=== PATIENT | female | born 1990 | race Caucasian/White ===

== ENCOUNTER 2021-01-27 13:35 | Outpatient (REF) | payer BC, SELFPAY ==
--- OUTSIDE RECORDS SUMMARY | 2021-01-27 13:42 | XMS_ITS ---
:1990 Author Care Team Providers Name Role Phone DREW JASON Primary Care Provider [phone] Allergies Code Code System Name Reaction Severity Status Onset NKDA ? Medications Name Status Start Date Stop Date ? ? azithromycin 200 mg/5 mL oral Completed ? suspension azithromycin 250 mg tablet Completed ? 04/11 divalproex ER 500 mg tablet,extended Active ? Not available release 24 hr escitalopram 10 mg tablet Active ? Not av ailable minocycline 100 mg capsule Active ? Not a vailable Nexplanon 68 mg subdermal implant Active ? Not available Inject 1 mg as needed by subcutaneous route as directed. nitrofurantoin monohydrate/macrocrystals 100 mg capsule Active ? Not available TAKE ONE CAPSULE BY MOUTH TWICE A DAY Problems Name Status Onset Date Source ? Dyspareunia Active 04/11/2017 ? Irregular Periods Active 04/11/2017 ? Dysfunctional Uterine Bleeding Active 04/11/2017 ? Low Back Pain Active 04/11/2017 ? Dysuria Active 04/11/2017 ? Lower Back Injury Unknown 04/11/2017 ? Procedures Date Name Performed by ? ? ENT- Adenoidectomy/Tonsillectomy Informa tion not available ? [facility]-Ovarian Surgery Information not avai lable Notes: Ovarian Cysts Results Lab Results Date Name Specimen Result Interpretation Description Value Range Status Address ? 04/11/2017 Culture, Urine ? Specific 1.022 1.003-1.030 Fin al [facility] ([facility] [address], [place] ? ? Urine ? pH Urine 7.0 5.0-8.0 Final [facility] ([facility] [address], [place] ? ? Urine Rajani Protein, negative negative Final [facility] ([facility] [address], [place] ? ? Urine Rajani Glucose, negative negative Final [facility] ([facility] [address], [place] ? ? Urine ABNOR Ketone, trace negative Final [facility] Urine [facility] ([facility] [address], [place] ? ? Urine ? Urobilinoge 0.2 0.2-1.0 Final [facility] Urine mg/dL mg/dL [facility] ([facility] [address], [place] ? ? Urine Rajani Bilirubin, negative negative Final G [facility] ([facility] [address], [place] ? ? Urine Rajani Blood, negative negative Final [facility] ([facility] [address], [place] ? ? Urine Rajani Nitrites negative negative Final [facility] ([facility] [address], [place] ? ? Urine Rajani Crystals none none Final [facility] ([facility] [address], [place] ? ? Urine ABNOR WBC, Urine 41-60 0-4 per hpf Final [facility] per hpf [facility] ([facility] [address], [place] ? ? Urine Rajani RBC, Urine none none seen Final Ge [facility] seen per per hpf [facility] ([facility] [address], [place] ? ? Urine Rajani Cast, RBC, none 0-1 per lpf Final [facility] Urine seen per Health [facility] ([facility] [address], [place] ? ? Urine Rajani Cast, 0-4 per 0-4 per lpf Final [facility]p [facility] Hyaline, lpf [facility] Urine ([facility] [address], [place] ? ? Urine ABNOR Epithelial moderate none-few Final G [facility] Cells, [facility] ([facility] [address], [place] ? ? Urine Rajani Cast, none 0-1 per lpf Final Genpa [facility] Granular, Ur seen per He alth lpf ([facility] [address], [place] ? ? Urine ABNOR Bacteria, moderate none-few Final Ge n[facility] Urine [facility] ([facility] [address], [place] ? ? Urine Rajani Crystal none per none per hpf Final [facility] Amt. Urine hpf [facility] ([facility] [address], [place] ? ? Urine ABNOR Leukocyte large negative Final [facility] Esterase [facility] ([facility] [address], [place] ? ? Urine Rajani Color yellow yellow, Final [facility] straw, [facility] [address], [place] ? ? Urine ABNOR Character cloudy clear Final [facility] ([facility] [address], [place] ? ? Urine Rajani Culture, see no growth Final Gen[facility] Urine below [facility] ([facility]): [address], [place] 04/11/2017 Urinalysi Urine ? Specific 1.022 1.003-1.030 Fi nal [facility], [facility] ([facility]): [address], [place] ? ? Urine ? pH Urine 7.0 5.0-8.0 Final [facility] ([facility] [address], [place] ? ? Urine Rajani Protein, negative negative Final [facility] Urine [facility] ([facility] [address], [place] ? ? Urine Rajani Glucose, negative negative Final [facility] Urine [facility] ([facility] [address], [place] ? ? Urine ABNOR Ketone, trace negative Final [facility] Urine [facility] ([facility] [address], [place] ? ? Urine ? Urobilinoge 0.2 0.2-1.0 Final [facility] Urine mg/dL mg/dL [facility] ([facility] [address], [place] ? ? Urine Rajani Bilirubin, negative negative Final G [facility] Urine [facility] ([facility]): [address], [place] ? ? Urine Rajani Blood, negative negative Final [facility]pa [facility] Urine [facility] ([facility] [address], [place] ? ? Urine Rajani Nitrites negative negative Final [facility] Urine [facility] ([facility]): [address], [place] ? ? Urine Rajani Crystals none none Final [facility] ([facility] [address], [place] ? ? Urine ABNOR WBC, Urine 41-60 0-4 per hpf Final [facility] per hpf [facility] ([facility] [address], [place] ? ? Urine Rajani RBC, Urine none none seen Final Ge n[facility] seen per per hpf [facility] ([facility]): [address], [place] ? ? Urine Rajani Cast, RBC, none 0-1 per lpf Final [facility] Urine seen per Health [facility] ([facility]): [address], [place] ? ? Urine Rajani Cast, 0-4 per 0-4 per lpf Final Genp [facility] Hyaline, lpf Health Urine ([facility]): [address], [place] ? ? Urine ABNOR Epithelial moderate none-few Final G en[facility] Cells, [facility] ([facility] [address], [place] ? ? Urine Rajani Cast, none 0-1 per lpf Final Genpa th [facility] Granular, Ur seen per He alth lpf ([facility]): [address], [place] ? ? Urine ABNOR Bacteria, moderate none-few Final Ge npath [facility] Urine [facility] ([facility]): [address], [place] ? ? Urine Rajani Crystal none per none per hpf Final [facility] Amt. Urine hpf [facility] ([facility]): [address], [place] ? ? Urine ABNOR Leukocyte large negative Final [facility] Esterase [facility] ([facility]): [address], [place] ? ? Urine Rajani Color yellow yellow, Final [facility] straw, [facility] ([facility] [address], [place] ? ? Urine ABNOR Character cloudy clear Final [facility] ([facility] [address], [place] ? ? Urine Rajani Culture, see no growth Final Genp ath [facility] Urine below [facility] ([facility]): [address], [place] Past Encounters None recorded. Social History Tobacco Smoking Status Never Smoker Vaccine List None recorded. Plan of Care Reminders Provider Appointments None ? ? recorded. Lab None ? ? recorded. Referral None ? ? recorded. Procedures None ? ? recorded. Surgeries None ? ? recorded. Imaging None ? ? recorded. Vitals Height Weight BMI 4 ft 6.5 in 93.8 lbs 22.2 kg/m2
[2021-01-30 14:03] LABS: Chlamydia Result Negative (Negative); GC Result Negative (Negative)
== END 2021-01-27 13:36 | disposition home or self-care (01) ==
LOC: LBN 13:35
PROVIDERS: Visit Provider Physician Assistant Medical
DX: R30.0 Dysuria (principal)
CPT/HCPCS: 87077; 87491; 87591; 87086; 87480; 87510; 87660